=== PATIENT | female | born 1985 | race Caucasian/White ===

== ENCOUNTER 2016-08-03 18:52 | Emergency (ER) | payer MEDICAID ==
[~2016-08-03] VITALS: Ht 175.3 cm; Wt 72.6 kg
[~2016-08-03 18:52] MED LIST: ADDERRALL PO; CITA40TA22 PO
--- NOTE | 2016-08-03 18:58 | NUR ---
PT WALKED INTO ER C/O ANXIETY/PANIC ATTACK, STATES SHE HAS A HX OF PTSD, DENIES S/I, H/I, PT ALERT, ORIENTED X 4, NO RESP DISTRESS NOTED OR REPORTED UPON ASSESSMENT. MD AT BEDSIDE...
[2016-08-03] MEDS ORDERED: ALPRAZOLAM 0.25 MG TABLET PO ONE (20:00)
--- NOTE | 2016-08-03 20:07 | NUR ---
Patient discharged to home in stable conditon. Written and verbal after care instructions given. Patient verbalizes understanding of instructions. PT WALKED OUT UNASSISTED, STATES HER WILL BE PICKING HER UP...
[2016-08-03 20:09] VITALS: BP 126/89
[2016-08-03] MEDS ORDERED: ALPRAZOLAM 0.5 MG TABLET ONE (20:11)
== END 2016-08-03 20:10 | disposition home or self-care (01) ==
LOC: ER 18:56
DX: F41.9 Anxiety disorder, unspecified (principal); F32.9 Major depressive disorder, single episode, unspecified; F17.200 Nicotine dependence, unspecified, uncomplicated
CPT/HCPCS: A4663

== ENCOUNTER 2017-02-25 23:02 | Emergency (ER) | payer BC, OTHER ==
[~2017-02-25] VITALS: Ht 175.3 cm; Wt 76.2 kg
--- NOTE | 2017-02-25 23:51 | NUR ---
Patient discharged to home in stable conditon. Written and verbal after care instructions given. Patient verbalizes understanding of instructions.
== END 2017-02-25 23:51 | disposition home or self-care (01) ==
LOC: ER 23:10
DX: F41.9 Anxiety disorder, unspecified (principal); F32.9 Major depressive disorder, single episode, unspecified; F43.10 Post-traumatic stress disorder, unspecified; F17.200 Nicotine dependence, unspecified, uncomplicated
CPT/HCPCS: A4663

== ENCOUNTER 2017-03-02 22:36 | Inpatient (IN) | payer BC, OTHER ==
[~2017-03-02] VITALS: Ht 175.3 cm; Wt 81.6 kg
[2017-03-02 23:15] VITALS: BP 117/71
--- NOTE | 2017-03-02 23:15 | NUR ---
Pre-Admission Pre-admission assessment performed in the intake department of [facility]. Pt is A&O x4 and ambulatory with a steady gait. Her is present during the intake process. Vital signs are B/P 117/71, HR 113, RR 18, O2 sat 98%, T 98.0, and she reports mild pain related to fibromyalgia. Pt does not appear intoxicated and her speech is clear. She has racing thoughts and appears anxious. Pt is able to be redirected to answer questions. She reports that she has been using Xanax 4mg per day. Last given 1mg in the ED of another hospital earlier this evening. She denies h/o seizures. Pt is stable and admission is to continue [facility] the [facility].
[2017-03-02] MEDS ORDERED: ONDANSETRON 4 MG/2 ML VIAL IM PRN (23:30)
[2017-03-02] MEDS ORDERED: DICYCLOMINE HCL 20 MG TABLET PO PRN (23:30)
[2017-03-02] MEDS ORDERED: PRAZOSIN HCL 1 MG CAPSULE PO PRN (23:30)
[2017-03-02] MEDS ORDERED: LOPERAMIDE HCL 2 MG CAPSULE PO PRN ×2 (23:30)
[2017-03-02] MEDS ORDERED: ONDANSETRON ODT 4 MG TAB.RAPDIS SL PRN (23:30)
[2017-03-02] MEDS ORDERED: MIRALAX 17 GM POWD.PACK PO PRN (23:30)
[2017-03-02] MEDS ORDERED: MAG HYDROX/AL HYDROX/SIMETH 30 ML LIQUID UDC PO PRN (23:30)
[2017-03-02] MEDS ORDERED: LORAZEPAM 2 MG/1 ML VIAL IM PRN (23:30)
[2017-03-02] MEDS ORDERED: DIAZEPAM 10 MG TABLET PO PRN (23:30)
[2017-03-02] MEDS ORDERED: ACETAMINOPHEN 325 MG TABLET PO PRN (23:30)
[2017-03-02] MEDS ORDERED: DIAZEPAM 5 MG TABLET PO PRN (23:30)
[2017-03-03] VITALS (7 sets, daily range): BP systolic 100–125; BP diastolic 52–82
[2017-03-03] MEDS ORDERED: DIAZEPAM 10 MG TABLET PO SCH (00:30)
[2017-03-03 00:36] LABS: *AMPHETAMINE, URINE NEGATIVE (NEGATIVE); *BARBITURATE, URINE NEGATIVE (NEGATIVE); *CANNABINOID, URINE NEGATIVE (NEGATIVE); *COCCAINE, URINE NEGATIVE (NEGATIVE); *OPIATE, URINE NEGATIVE (NEGATIVE); *PHENCYCLIDINE SCREEN,URINE NEGATIVE (NEGATIVE)
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
[2017-03-03 01:02] LABS: *URINE HCG, QUAL NEGATIVE (NEGATIVE)
[2017-03-03] MEDS: diphenhydrAMINE 50 MG CAPSULE PO PRN ×2 (01:08→20:50)
--- NOTE | 2017-03-03 01:10 | NUR ---
PRN Benadryl and one time Valium Pt reports feeling anxious, restless, and as if she is going to panic. She also reports inability to sleep. HR 108 and CIWA 4. Provided calming reassurance. PRN Benadryl administered with one time Valium per MD orders.
[2017-03-03] MEDS ORDERED: diphenhydrAMINE 50 MG CAPSULE ONE (01:21)
[2017-03-03] MEDS ORDERED: DIAZEPAM 10 MG TABLET ONE (01:21)
[2017-03-03] MEDS ORDERED: BUPR150T5 PO (01:57)
--- NOTE | 2017-03-03 02:10 | NUR ---
PRN Benadryl and one time Valium reassessment PRN Benadryl and one time Valium effective. Pt is lying in bed resting with eyes closed. Respirations even and unlabored. Safety measures in place.
[2017-03-03 03:18] LABS: BASOPHILS % (AUTO) 0.4 % (0.0-2.0); EOSINOPHILS # (AUTO) 0.1 K/uL (0.0-0.7); EOSINOPHILS % (AUTO) 0.8 % (0.0-7.0); HEMATOCRIT 38.1 % (37-47); HEMOGLOBIN 12.9 G/DL (12.0-16.0); LYMPHOCYTES # (AUTO) 3.2 K/UL (0.8-4.8); LYMPHOCYTES % (AUTO) 34.2 % (20.5-51.5); MEAN CORPUSCULAR HEMOGLOBIN 30.2 UUG (27.0-31.0); MEAN CORPUSCULAR HGB CONC 34 g/dL (32.0-37.0); MONOCYTES # (AUTO) 0.9 K/UL (0.1-1.30); MONOCYTES % (AUTO) 9.1 % (0.0-11.0); NEUTROPHILS # (AUTO) 5.2 K/UL (1.8-8.9); NEUTROPHILS % (AUTO) 55.5 % (38.5-71.5); PLATELET COUNT (AUTO) 212 K/UL (150-450); RED BLOOD CELL COUNT(AUTO) 4.28 MIL/UL (4.2-5.4); WHITE BLOOD COUNT (AUTO) 9.4 K/UL (4.0-11.2)
[2017-03-03 03:28] LABS: ETHANOL < 3 MG/DL (0-0)
[2017-03-03 03:30] LABS: ALANINE AMINOTRANSFERASE 69 U/L (14-59); ALKALINE PHOSPHATASE 64 U/L (50-136); ASPARTATE AMINOTRANSFERASE 35 U/L (15-37); BILIRUBIN,TOTAL 0.3 mg/dL (0.2-1.0); CARBON DIOXIDE 28 mmol/L (21-32); CHLORIDE 106 mmol/L (98-107); CREATININE 0.8 mg/dL (0.6-1.3); GLUCOSE 98 mg/dL (74-106); MAGNESIUM 2.2 mg/dL (1.8-2.4); TOTAL PROTEIN, SERUM 6.8 g/dL (6.4-8.2); UREA NITROGEN, BLOOD 20 mg/dL (7-18)
--- NOTE | 2017-03-03 04:00 | NUR ---
0400 CIWA deferred CIWA ordered Q4HWA. Pt is lying in bed resting with eyes closed. Vital signs obtained. Safety measures in place.
--- NOTE | 2017-03-03 07:25 | NUR ---
END OF SHIFT Report provided to day shift nurse. Pt is in her room resting. She is a 31 yo female admitted to [facility] on 03/02 for BZD dependence. NKA, full code, regular diet. 5 day Valium to start today. Last CIWA was 4. One time Valium and Benadryl administered. She slept for 4 hours.
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
[2017-03-03] MEDS ORDERED: TUBERCULIN,PURIF.PROT.DERIV. 5 TU/0.1 ML TEST ID ONE (09:00)
[2017-03-03] MEDS: MULTIVITAMINS,THERAPEUTIC TABLET PO SCH (09:05)
[2017-03-03] MEDS: DIAZEPAM 10 MG TABLET PO SCH ×4 (09:05→20:50)
[2017-03-03] MEDS: buPROPion SR 150 MG TABLET.SA PO SCH (10:09)
[2017-03-03] MEDS: DIAZEPAM 10 MG TABLET PO PRN ×2 (10:28→22:58)
--- NOTE | 2017-03-03 10:28 | NUR ---
CRISIS TEAM CALLED Pt crying, stating she wants to cut herself, high anxiety state. Counselor speaking with patient. Crisis team called by insulation cupola charger. Meal tray with silverware removed from room. Dr. Angela to assess pt in a few minutes. DELVIS 11, given Valium 10 mg PRN. Will reassess in one hour. Pt placed on one to one monitoring. Will continue to monitor. Addendum: 03/03/17 at 1125 by DEQUAN PERALES RN Pt was also stating she wanted to . However, when asked, pt denies suicidal ideation or plan. Pt with multiple, superficial cuts/scratches on bilateral forearms and left anterior thigh, all scratches intact without redness or drainage.
--- NOTE | 2017-03-03 10:28 | NUR ---
PRN MEDICATION ADMINISTRATION Valium 10 mg po given for CIWA 11. Will reassess.
--- NOTE | 2017-03-03 11:28 | NUR ---
PRN MEDICATION REASSESSMENT Post assessment for Valium 10 mg PRN given at 1028 for CIWA 11. Pt sleeping, alert to verbal, CIWA 3.
--- NOTE | 2017-03-03 12:00 | NUR ---
notified of tachycardia HR 112-115. Dr. Angela notified. stating pt to received scheduled Valium dose and also her requested Baclofen PRN.
[2017-03-03] MEDS: BACLOFEN 20 MG TABLET PO PRN ×2 (13:17→20:51)
--- NOTE | 2017-03-03 13:17 | NUR ---
PRN MEDICATION ADMINISTRATION Pt reports neck pain, requesting muscle relaxant. Given Baclofen.
--- NOTE | 2017-03-03 14:17 | NUR ---
PRN MEDICATION REASSESSMENT Pt reports decrease in neck pain after dose of Baclofen.
[2017-03-03] MEDS: IBUPROFEN 600 MG TABLET PO PRN (17:34)
--- NOTE | 2017-03-03 17:34 | NUR ---
PRN MEDICATION ADMINISTRATION Pt report pain due to fibromyalgia. Given Tylenol PRN. Will reassess.
--- NOTE | 2017-03-03 18:34 | NUR ---
PRN MEDICATION REASSESSMENT Pt given Motrin for fibromyalgia pain. Pt now asleep.
--- NOTE | 2017-03-03 19:30 | NUR ---
END OF SHIFT NOTE 31 year old female admitted for medical detox from Xanax substance abuse disorder. History of fibromyalgia, UTI, left ankle fracture 2011, anxiety, depression, PTSD, Panic attacks. NKA. Full code. Regular diet. Fall and Seizure precautions. Placed on 5 day Valium taper. Pt with healed scratches, superficial cuts on bilateral forearms and left thigh scratches and bruising. 0800 CIWA 5. Howeverat 1023 pt with anxiety, CIWA 11, pt crying, stating she wants to , denies suicidal ideation, but wants to cut herself to decrease her anxiety. Counselor interviewed pt and crisis team also interviewed pt. Dr. Angela and Real notified. Pt placed on 1:1 for safety. Valium 10 mg po given at 1028, at 1128 CIWA 3. At 1247 CIWA 5 and at 1741 her CIWA is 2. At 1317 given Baclofen for neck pain and at 1734 given Motrin for fibromyalgia pain. Both medications effective for pain relief. Ate 100 percent of all meals and fluid intake 805 ml. Void x 4 and stool x 3. and fluid intake. Report given to night RN. Bed in low position and locked, side rails up x 2 and padded, call light within reach.
--- NOTE | 2017-03-03 19:55 | NUR ---
START OF SHIFT Received report from day shift nurse. Pt finished showering and is in her room with a 1:[address] for safety r/t to her verbalizing during the day that she wanted to cut herself. She is A&O x4 and ambulatory. NKA, full code status, and on a regular diet. PMH of fibromyalgia, UTI's, left ankle fracture, anxiety, depression, panic attacks, and PTSD. On admission she reported using Xanax 4mg per day. 5 day valium taper started today. Pt is observed to be restless with racing thoughts. Encouraged relaxation. Taper due tonight. Pt denies thoughts of harming herself or anyone else. Fall and seizure precautions in place. Bed is down with call light in reach.
[2017-03-03] MEDS: OXCARBAZEPINE 150 MG TABLET PO SCH (20:50)
--- NOTE | 2017-03-03 20:58 | NUR ---
PRN Tylenol and Benadryl Pt reports leg aches 7/10 and inability to sleep. PRN Tylenol and Benadryl administered.
--- NOTE | 2017-03-03 21:58 | NUR ---
PRN Tylenol and Benadryl reassessment PRN Tylenol somewhat effective. Pt's leg aches reduced to 4/10. She has not yet fallen asleep.
--- NOTE | 2017-03-03 23:00 | NUR ---
PRN Valium and Minipress Pt reports increased anxiety and inability to sleep. She states that whenever she falls asleep she has "flashbacks" of a traumatic event in her past. She states "I feel like I want to punch a wall". Pt denies SI/HI. HR 107. CIWA score 9. MD aware. PRN Valium and Minipress administered.
[2017-03-04] VITALS (7 sets, daily range): BP systolic 104–126; BP diastolic 65–80
--- NOTE | 2017-03-04 04:00 | NUR ---
0400 CIWA deferred CIWA ordered Q4HWA. Pt is lying in bed resting with eyes closed. Respirations even and unlabored. Safety measures in place.
--- NOTE | 2017-03-04 06:20 | NUR ---
PRN Valium Pt woke up anxious and reported that she had a nightmare. HR 110. CIWA score 5. Encouraged relaxation. PRN Valium administered.
--- NOTE | 2017-03-04 07:20 | NUR ---
PRN Valium reassessment PRN Valium effective. Pt is lying in bed resting with eyes closed. Respirations even and unlabored. Safety measures in place.
--- NOTE | 2017-03-04 07:27 | NUR ---
END OF SHIFT Report provided to day shift nurse. Pt is lying in bed resting with a 1:[address] for safety r/t thoughts of cutting herself yesterday. She is A&O x4 and ambulatory. NKA, full code status, and on a regular diet. PMH of fibromyalgia, UTI's, left ankle fracture, anxiety, depression, panic attacks, and PTSD. On admission she reported using Xanax 4mg per day. 5 day valium taper started 03/03. Pt did not have any SI throughout the shift. PRN Valium 10 mg, Valium 5mg, Tylenol, Benadryl, and Minipress administered. Last CIWA was 5. She drank 855mL and slept for 5 hours. Fall and seizure precautions in place. Bed is down with call light in reach.
--- NOTE | 2017-03-04 08:00 | NUR ---
START OF SHIFT NOTE 31 year old female admitted for medical detox from Xanax substance abuse disorder. History of fibromyalgia, UTI, left ankle fracture 2011, anxiety, depression, PTSD, Panic attacks. NKA. Full code. Regular diet. Fall and Seizure precautions. Received report from night RN. Pt received PRN valium x 2, last CIWA 5 at 0621. Also given PRN Tylenol, Bendryl, and prazosin. Slept 5 hours. 0800 nursing rounds pt asleep, respirations regular and unlabored. Bed in low position and locked, side rails up x 2 and padded, call guajardo within reach. Will continue to monitor.
[2017-03-04 08:06] LABS: HEPATITIS B SURFACE AG Negative (Negative)
[2017-03-04] MEDS: buPROPion SR 150 MG TABLET.SA PO SCH (09:38)
[2017-03-04] MEDS: DIAZEPAM 10 MG TABLET PO SCH ×3 (09:38→21:23)
[2017-03-04] MEDS: MULTIVITAMINS,THERAPEUTIC TABLET PO SCH (09:39)
[2017-03-04] MEDS: IBUPROFEN 600 MG TABLET PO PRN ×3 (09:46→21:23)
[2017-03-04] MEDS: OXCARBAZEPINE 150 MG TABLET PO SCH (09:46)
[2017-03-04] MEDS: CLONIDINE HCL 0.1 MG TABLET PO PRN (12:20)
[2017-03-04] MEDS: BACLOFEN 20 MG TABLET PO PRN (12:34)
--- NOTE | 2017-03-04 12:34 | NUR ---
PRN MEDICATION ADMINISTRATION Pt reported anxiety, neck muscle pain and headache. Given PRN Clonidine, Baclofen and Motrin. Will reassess.
--- NOTE | 2017-03-04 13:20 | NUR ---
PRN MEDICATION REASSESSMENT Post Clonidine,Baclofen and Motrin one hour prior. Pt reports decrease in anxiety, neck pain minimal, headache minimal.
--- NOTE | 2017-03-04 19:00 | NUR ---
END OF SHIFT NOTE 31 year old female admitted for medical detox from Xanax substance abuse disorder. History of fibromyalgia, UTI, left ankle fracture 2011, anxiety, depression, PTSD, Panic attacks. NKA. Full code. Regular diet. Fall and Seizure precautions. Received Clonidine, Baclofen and Motrin at 1234 for anxiety, muscle aches, headache. Symptoms relieved/decreased with PRN medication in one hour. Eating 75-100 percent of meals, fluid intake 2450 ml, void x 4, stool x 3. Report given to night RN. Bed in low position and locked, side rails up x 2 and padded, call guajardo within reach. Will continue to monitor.
--- NOTE | 2017-03-04 19:55 | NUR ---
START OF SHIFT Received report from day shift nurse. Pt attended a group meeting and returned to her room after. She is a 31 yo female admitted to [facility] on 03/02 for BZD dependence. She is A&O x4 and ambulatory. NKA, full code status, and on a regular diet. PMH of fibromyalgia, UTI's, left ankle fracture, anxiety, depression, panic attacks, and PTSD. On admission she reported using Xanax 4mg per day. 5 day valium taper started 03/03. Pt reports mild anxiety and neck ache. She denies SI/HI. Fall and seizure precautions in place. Bed is down with call light in reach.
[2017-03-04] MEDS: OXCARBAZEPINE 300 MG TABLET PO SCH (21:00)
[2017-03-04] MEDS: diphenhydrAMINE 50 MG CAPSULE PO PRN (21:23)
[2017-03-04] MEDS: PRAZOSIN HCL 1 MG CAPSULE PO PRN (21:23)
--- NOTE | 2017-03-04 21:25 | NUR ---
PRN Motrin, Benadryl, and Minipress Pt reports neck ache, inability to sleep, and night terrors. PRN Motrin, Benadryl, and Minipress administered.
--- NOTE | 2017-03-04 22:25 | NUR ---
PRN Motrin and Minipress PRN Motrin effective. Pt reports neck ache is relieved. She has not yet fallen asleep.
[2017-03-05] VITALS: BP 122/76
--- NOTE | 2017-03-05 04:00 | NUR ---
0400 Vitals refused/CIWA deferred Pt refused to be woken for 0400 vitals. Pt is lying in bed resting with eyes closed. Respirations even and unlabored. Safety measures in place.
--- NOTE | 2017-03-05 07:17 | NUR ---
END OF SHIFT Report provided to day shift nurse. Pt is lying in bed resting. She is a 31 yo female admitted to [facility] on 03/02 for BZD dependence. Pt has a 1:[address] for safety. She is A&O x4 and ambulatory. NKA, full code status, and on a regular diet. PMH of fibromyalgia, UTI's, left ankle fracture, anxiety, depression, panic attacks, and PTSD. On admission she reported using Xanax 4mg per day. 5 day valium taper started 03/03. No SI/HI during the shift. PRN Motrin and Minipress administered. Last CIWA 4. She drank 1000mL and slept for 5 hours. Fall and seizure precautions in place. Bed is down with call light in reach. Addendum: 03/05/17 at 0724 by XOCHITL FALLON RN Pt refused her 2100 Trileptal. She explained "anticonvulsants can make me feel upset and cry"
[2017-03-05 08:00] VITALS: BP 118/78
--- NOTE | 2017-03-05 08:00 | NUR ---
START OF SHIFT NOTE 31 year old female admitted for medical detox from Xanax substance abuse disorder. History of fibromyalgia, UTI, left ankle fracture 2011, anxiety, depression, PTSD, Panic attacks. NKA. Full code. Regular diet. Fall and Seizure precautions. Received report from night RN. Pt received PRN Motrin and Minipress. Slept 5 hours. Last CIWA 4 at 1200 am. 0800 nursing rounds pt alert and oriented, no requests at this time. Bed in low position and locked, side rails up x 2 and padded, call guajardo within reach. Will continue to monitor.
[2017-03-05] MEDS: buPROPion SR 150 MG TABLET.SA PO SCH (09:17)
[2017-03-05] MEDS: DIAZEPAM 5 MG TABLET PO SCH ×3 (09:17→16:49)
[2017-03-05] MEDS: OXCARBAZEPINE 300 MG TABLET PO SCH ×2 (09:17→21:11)
[2017-03-05] MEDS: MULTIVITAMINS,THERAPEUTIC TABLET PO SCH (09:17)
[2017-03-05 12:00] VITALS: BP 110/87
[2017-03-05] MEDS: BACLOFEN 20 MG TABLET PO PRN (13:10)
[2017-03-05] MEDS: IBUPROFEN 600 MG TABLET PO PRN ×3 (13:10→21:11)
--- NOTE | 2017-03-05 13:10 | NUR ---
PRN MEDICATION ADMINISTRATION Pt reports neck ache, bilateral leg neuropathic pain. Given Motrin and Baclofen. Will reassess.
--- NOTE | 2017-03-05 13:45 | NUR ---
Activity Group Note: Client participated in "Sequence" activity. Intervention goal was to increase task focus and leisure skills. Client's mood appeared to be euthymic with congruent affect. Client had a coherent and goal-directed thought process as she was able to understand and complete the task. She initiated conversation with her peers and medical social worker. She stated that "This [the activity] is good for me and my brain." Client benefits from leisure activities and social interaction with peers. handy worker will continue to encourage participation in activity group.
--- NOTE | 2017-03-05 14:10 | NUR ---
PRN MEDICATION REASSESSMENT Post Motrin and Baclofen administration. Pt reports improvement in symptoms/decrease in pain in neck and legs.
[2017-03-05] MEDS: CLONIDINE HCL 0.1 MG TABLET PO PRN (16:52)
--- NOTE | 2017-03-05 16:52 | NUR ---
PRN MEDICATION ADMINISTRATION Pt reporting anxiety. Given Clonidine PRN. Will reassess.
[2017-03-05 17:00] VITALS: BP 132/85
--- NOTE | 2017-03-05 17:52 | NUR ---
PRN MEDICATION REASSESSMENT Pt given Clonidine PRN for anxiety at 1652. At 1752, pt reports decrease in anxiety.
--- NOTE | 2017-03-05 19:00 | NUR ---
END OF SHIFT NOTE 31 year old female admitted for medical detox from Xanax substance abuse disorder. History of fibromyalgia, UTI, left ankle fracture 2011, anxiety, depression, PTSD, Panic attacks. NKA. Full code. Regular diet. Fall and Seizure precautions. Tolerating Valium taper as evidenced by CIWA score of 4 at 0800, 1200 and 1700. At 1310, Pt reporting neck muscle aches and bilateral leg neuropathy pain. Given Baclofen and Motrin. AT 1410, P t reports decrease in neck and leg pain. At 1652, Pt reported anxiety. Given Clonidine PRN. At 1752, Pt report decrease in anxiety. Consuming 75-100 percent of meals. Fluid intake 1500 ml. Void x 3, stool x 2. Report given to night RN. Bed in low position and locked, side rails up x 2 and padded, call guajardo within reach.
--- NOTE | 2017-03-05 19:15 | NUR ---
START OF SHIFT Received 31 year old female patient admitted on 03/02/17 for Xanax dependency. Pt is full code with NKA. She reports a PMHx of fibromyalgia, hx of UTI's, left ankle fracture in 2011, anxiety, depression, PTSD, panic attacks. She reports using Xanax 4 mg daily for 20 days. Last dose was 1 mg on 03/02/17. Pt is currently on a 5 day Valium taper and is tolerating well. Per endorsement, she received PRN Clonidine. She is alert and oriented x4, breathing is even and unlabored. Safety measures in place. Will continue to monitor.
[2017-03-05 20:00] VITALS: BP 130/79
[2017-03-05] MEDS ORDERED: DIAZEPAM 10 MG TABLET PO SCH (21:00)
[2017-03-05] MEDS: diphenhydrAMINE 50 MG CAPSULE PO PRN (21:10)
[2017-03-05] MEDS: PRAZOSIN HCL 1 MG CAPSULE PO PRN (21:10)
--- NOTE | 2017-03-05 21:10 | NUR ---
PRN MOTRIN, BENADRYL, MINIPRESS Pt complains of pain related to fibromyalgia 5/10, inability to sleep and night terrors. PRN Motrin, Benadryl and Minipress administered as ordered. Breathing even and unlabored. Safety measures in place. Will monitor effectiveness.
--- NOTE | 2017-03-05 22:10 | NUR ---
PRN REASSESSMENT PRN Motrin effective. Pt reports decrease in pain. PRN Benadryl and Minipress ineffective after 1 hour of administration. Pt appears drowsy and reports she is ready to sleep. Will monitor.
--- NOTE | 2017-03-06 | NUR ---
VITALS REFUSED, CIWA DEFERRED 0000 vitals refused by pt. Pt stated " I want to sleep, it's been hard for me to fall asleep." CIWA deferred d/t pt lying in bed with eyes closed noted to be asleep. Respirations 16, breathing is even and unlabored. Safety measures in place. Will monitor.
--- NOTE | 2017-03-06 04:00 | NUR ---
VITALS REFUSED, CIWA DEFERRED 0400 vitals refused by pt. CIWA deferred d/t pt lying in bed with eyes closed noted to be asleep. Respirations 16, breathing is even and unlabored. Safety measures in place. Will monitor.
--- NOTE | 2017-03-06 07:05 | NUR ---
END OF SHIFT Pt is a 31 year old female patient admitted on 03/02/17 for Xanax dependency. Pt is full code with NKA. She reports a PMHx of fibromyalgia, hx of UTI's, left ankle fracture in 2011, anxiety, depression, PTSD, panic attacks. Pt continues on a 5 day Valium taper which was modified by . She is tolerating well. At 2109 she received PRN Motrin, Benadryl, and Minipress. She slept a total of 6hrs, Intake: 796mL, Void: x1, BM:x1, CIWA:4. She remains alert and oriented x4, breathing is even and unlabored. Safety measures in place. Will endorse.
--- NOTE | 2017-03-06 07:10 | NUR ---
Start of shift note SBAR report rcv'd. Pt was admitted for benzo dependence. Pt has a PMHx of fibromylagia, UTI's, anxiety, depression, PTSD, and panic attacks. Pt is on a modified valium taper. Pt is a full code, on a regular diet and denies any allergies. Pt states that she would like some bengay for her legs, will notify Dr Angela during rounds, pt has no further complaints at this time. Will continue to monitor pt. All needs addressed at this time.
[2017-03-06 08:00] VITALS: BP 121/73
[2017-03-06] MEDS: MULTIVITAMINS,THERAPEUTIC TABLET PO SCH (08:59)
[2017-03-06] MEDS: OXCARBAZEPINE 300 MG TABLET PO SCH ×2 (08:59→22:10)
[2017-03-06] MEDS ORDERED: DIAZEPAM 5 MG TABLET PO SCH ×2 (09:00→15:00)
[2017-03-06] MEDS: buPROPion SR 150 MG TABLET.SA PO SCH (09:35)
[2017-03-06 12:00] VITALS: BP 113/83
--- NOTE | 2017-03-06 12:00 | NUR ---
CIWA deferred Pt is sleeping, CIWA deferred. Will continue to monitor pt.
--- NOTE | 2017-03-06 13:45 | NUR ---
Activity Group Note: Client participated in "painting" activity. Intervention goal was to increase task focus and leisure skills. Client's mood appeared to be euthymic with congruent affect. She had a coherent and goal-directed thought process as she was able to complete the task. She was able to initiate conversation with peers. Client stated the activity was "a good coping mechanism for me." Client benefits from leisure activities and social interaction with peers. soda worker will continue to encourage participation.
[2017-03-06] MEDS: IBUPROFEN 600 MG TABLET PO PRN ×2 (14:12→22:10)
--- NOTE | 2017-03-06 14:12 | NUR ---
PRN administration Pt c/o leg pain 11/20 d/t fibromylagia. Requested motrin, administered per MD order. Will continue to monitor pt.
--- NOTE | 2017-03-06 15:12 | NUR ---
Reassessment Pt states that the medication was effective in reducing her pain for 08/21. Will continue to monitor pt.
[2017-03-06 16:00] VITALS: BP 117/87
--- NOTE | 2017-03-06 18:57 | NUR ---
End of shift note Pt was admitted for benzo dependence. Pt is a full code, on a regular diet and denies any allergies. Pt has a PMHx of fibromylagia, UTI's, anxiety, depression, PTSD, and panic attacks. Pt is on a modified valium taper, which was modified further during the shift d/t pt discomfort during the withdrawal process addressed at this time. Pt has PRN bengay available per Dr Angela for her leg pain, pt stated that she would like to use it prior to bed. Pt required one PRN dose of motrin during the shift for her leg pain with effectiveness. PO fluids encouraged. Pt drank 1500ml of fluids, have 2 voids and 1 BM during the shift and ate 100% of meals. Pt has no further complaints at this time. Pt had a CIWA of 4 at 1600. Will continue to monitor pt.
--- NOTE | 2017-03-06 19:15 | NUR ---
START OF SHIFT Received 31 year old female patient admitted on 03/02/17 for Xanax dependency. Pt is full code with NKA. She reports a PMHx of fibromyalgia, hx of UTI's, left ankle fracture in 2011, anxiety, depression, PTSD, panic attacks. She reports using Xanax 4 mg daily for 20 days. Last dose was 1 mg on 03/02/17. Pt is currently on a 5 day Valium taper and is tolerating well. Per endorsement, taper was modified today. She received PRN Motrin. Pt is alert and oriented x4, breathing is even and unlabored. Safety measures in place. Will continue to monitor.
[2017-03-06 20:00] VITALS: BP 128/87
[2017-03-06] MEDS ORDERED: DIAZEPAM 10 MG TABLET PO SCH (21:00)
[2017-03-06] MEDS: PRAZOSIN HCL 1 MG CAPSULE PO SCH (22:08)
[2017-03-06] MEDS: diphenhydrAMINE 50 MG CAPSULE PO PRN (22:10)
[2017-03-06] MEDS: CLONIDINE HCL 0.1 MG TABLET PO SCH (22:10)
--- NOTE | 2017-03-06 22:10 | NUR ---
PRN MOTRIN/SHAREE DENISE/BENADRYL Pt complains of pain on lower legs and insomnia. PRN Motrin, Sharee Denise cream and Benadryl administered as ordered. Breathing even and unlabored. Pt refuses side rails to be up. Will continue to monitor.
[2017-03-06] MEDS: METHYL SALICYLATE/MENTHOL CREAM 28 GM TUBE TOP PRN (22:12)
--- NOTE | 2017-03-06 23:10 | NUR ---
PRN REASSESSMENT PRN Motrin and Bengay effective in relieving pt's pain on lower legs. PRN Benadryl ineffective. Pt appears drowsy, reports she is ready to sleep. Will continue to monitor.
[2017-03-07 00:03] VITALS: BP 118/82
[2017-03-07] MEDS: IBUPROFEN 600 MG TABLET PO PRN ×3 (06:34→15:12)
--- NOTE | 2017-03-07 06:34 | NUR ---
PRN MOTRIN Pt complains of headache 11/20. PRN Motrin administered as ordered. Breathing is even and unlabored. Safety measures in place. Will endorse to AM shift to monitor effectiveness.
--- NOTE | 2017-03-07 07:05 | NUR ---
END OF SHIFT Pt is 31 year old female patient admitted on 03/02/17 for Xanax dependency. Pt is full code with NKA. She reports a PMHx of fibromyalgia, hx of UTI's, left ankle fracture in 2011, anxiety, depression, PTSD, panic attacks. She reports using Xanax 4 mg daily for 20 days. Last dose was 1 mg on 03/02/17. She continues on a Valium taper that has been modified by . At 2210 she recevied PRN Motrin and Benadryl. She slept a total of 5 hrs, Intake:1105mL, Void: x3, BM:0, CIWA:4. Pt remains alert and oriented x4, breathing is even and unlabored. Safety measures in place. Will endorse to oncoming shift.
--- NOTE | 2017-03-07 07:34 | NUR ---
BEGINNING OF SHIFT Patient endorsement report received from night warehouse manager nurse, all pertinent information discussed. patient is a 31 year old female admitted on: 03/02/2017 with admitting Dx: bzo dependence. Patient Fall and seizure precautions observed and in place. Per night warehouse manager patient patient slept for 5 hours. Patient received PRN: Motrin and Benadryl, as ordered, per night warehouse manager medications effective. safety measures in place. call light kept with in reach. patient with last ciwa score of: 4. safety measures in place. will continue to monitor closely.
[2017-03-07 08:44] VITALS: BP 110/73
[2017-03-07] MEDS: buPROPion SR 150 MG TABLET.SA PO SCH (08:54)
[2017-03-07] MEDS: DIAZEPAM 5 MG TABLET PO SCH ×2 (08:54→20:29)
[2017-03-07] MEDS: MULTIVITAMINS,THERAPEUTIC TABLET PO SCH (08:54)
[2017-03-07] MEDS: OXCARBAZEPINE 300 MG TABLET PO SCH ×2 (08:54→20:29)
[2017-03-07] MEDS: CLONIDINE HCL 0.1 MG TABLET PO SCH ×2 (08:55→20:30)
--- NOTE | 2017-03-07 08:57 | NUR ---
PRN MOTRIN Patient c/o body aches 10/21 provided with non pharmacological interventions with no relief, administered Motrin as ordered, will monitor effectiveness.
--- NOTE | 2017-03-07 09:57 | NUR ---
MOTRIN REASSESSMENT Patient reports medication effective, current pain level 0/10, will continue to monitor.
--- NOTE | 2017-03-07 13:45 | NUR ---
Activity Group Note: Client participated in "Sequence" activity. Intervention goal was to increase task focus and leisure skills. Client's mood appeared to be euthymic with appropriate affect. She had a coherent and goal-directed thought process, as evidenced by her ability to understand, complete, and teach the task to her peers. She initiated and upheld conversation with peers and social welfare research worker. Client stated, "I have loved hanging out with everyone these past few days...I just like to get out of my room." Client benefits from social interaction with peers and leisure activities. alley worker will continue to encourage participation.
[2017-03-07 13:46] VITALS: BP 128/79
[2017-03-07] MEDS ORDERED: PNEUMOCOCCAL 23-VAL P-SAC VAC 0.5 ML VIAL IM ONE (15:00)
[2017-03-07] MEDS ORDERED: INFLUENZA VACCINE 2017-2018 0.5 ML DISP.SYRIN IM ONE (15:00)
[2017-03-07 15:11] VITALS: BP 141/92
--- NOTE | 2017-03-07 15:12 | NUR ---
PRN MOTRIN Patient c/o body aches 10/21 provided with non pharmacological interventions with no relief, administered Motrin as ordered, will monitor effectiveness.
[2017-03-07] MEDS: CLONIDINE HCL 0.1 MG TABLET PO PRN (15:13)
--- NOTE | 2017-03-07 15:13 | NUR ---
PRN CLONIDINE patient with bp: 141/92 heart rate of: 103, administered clonidine as ordered, will monitor effectiveness.
--- NOTE | 2017-03-07 15:25 | NUR ---
PNA/FLU VACCINE ADMINISTRATION Patient consented for flu and PNA vaccine, administered injections as ordered, pneumococcal vaccine to left deltoid and flu vaccine to right deltoid. Injections well tolerated. will continue to monitor.
--- NOTE | 2017-03-07 16:12 | NUR ---
MOTRIN REASSESSMENT Patient reports medication effective, current pain level 0/10, will continue to monitor.
--- NOTE | 2017-03-07 16:13 | NUR ---
CLONIDINE REASSESSMENT Medication effective, bp decreased to: 119/76 heart rate: 69 will continue to monitor.
[2017-03-07 17:24] VITALS: BP 119/76
--- NOTE | 2017-03-07 19:05 | NUR ---
END OF SHIFT Patient alert and oriented x4, admitting Dx: BZO dependence. compliant with therapeutic plan of care. patients vital signs were stable during shift. patient currently with ongoing modified Valium taper as ordered, well tolerated, no ASE noted. patient encouraged adequate PO fluid intake as tolerated. 0900 assessment patient presented with: fine tremors, barely sweating, moderate anxiety, and mild agitation with ciwa score of: 9; 1300 assessment patient presented with: fine tremors, moderate anxiety and mild agitation with ciwa score of: 8; 1700 assessment patient presented with: fine tremors moderate anxiety and mild agitation with ciwa score of: 8. Patient received PRN: Motrin x2 during shift and clonidine as ordered, medications effective one hour post administration. detox medication effective at reducing withdrawal symptoms.during shift patient encouraged to attend group therapies/sessions to learn new coping skills to prevent relapse, patient denies any SI/HI. During shift patient received Flu vaccine and PNA vaccine as ordered, well tolerated. Safety measures in place. will continue to monitor, endorsement report given to overnight cashier nurse, all pertinent information discussed.
--- NOTE | 2017-03-07 19:15 | NUR ---
START OF SHIFT Received 31 year old female patient admitted on 03/02/17 for Xanax dependency. Pt is full code with NKA. She reports a PMHx of fibromyalgia, hx of UTI's, left ankle fracture in 2011, anxiety, depression, PTSD, panic attacks. She reports using Xanax 4 mg daily for 20 days. Last dose was 1 mg on 03/02/17. Pt is currently on a modified Valium taper and is tolerating well. Per endorsement, she received her flu and PNA vaccine and received a PRN Motrin and clonidine. Pt is alert and oriented x4, breathing is even and unlabored. Safety measures in place. Will continue to monitor.
[2017-03-07 20:00] VITALS: BP 124/76
[2017-03-07] MEDS ORDERED: NICOTINE 14 MG/24HR PATCH TD PRN (20:00)
[2017-03-07] MEDS ORDERED: NICOTINE POLACRILEX 4 MG GUM-PK OF TEN BC PRN (20:00)
[2017-03-07] MEDS: BACLOFEN 20 MG TABLET PO PRN (20:29)
[2017-03-07] MEDS: PRAZOSIN HCL 1 MG CAPSULE PO SCH (20:29)
--- NOTE | 2017-03-07 20:29 | NUR ---
PRN BACLOFEN/BENGAY CREAM Pt complains of muscle spasms/pain. PRN Baclofen and Bengay cream administered as ordered. Pt reports Bengay is effective in relieving her pain. Will monitor.
[2017-03-07] MEDS: METHYL SALICYLATE/MENTHOL CREAM 28 GM TUBE TOP PRN (20:31)
--- NOTE | 2017-03-07 21:29 | NUR ---
PRN REASSESSMENT PRN Baclofen effective. Pt reports decrease in muscle spasms/pain. Will continue to monitor
[2017-03-07] MEDS: diphenhydrAMINE 50 MG CAPSULE PO PRN (23:54)
--- NOTE | 2017-03-07 23:54 | NUR ---
PRN BENADRYL Pt complains of insomnia. PRN Benadryl administered as ordered. Breathing even and unlabored. Will monitor effectiveness.
[2017-03-08] VITALS: BP 117/73
--- NOTE | 2017-03-08 00:54 | NUR ---
PRN REASSESSMENT PRN medication is effective. Pt lying in bed with eyes closed noted to be asleep. Respirations 16, breathing is even and unlabored. Safety measures in place. Will monitor.
[2017-03-08 04:35] VITALS: BP 128/85
--- NOTE | 2017-03-08 07:22 | NUR ---
END OF SHIFT Pt is a 31 year old female patient admitted on 03/02/17 for Xanax dependency. Pt is full code with NKA. She reports a PMHx of fibromyalgia, hx of UTI's, left ankle fracture in 2011, anxiety, depression, PTSD, panic attacks. She continues on a modified Valium taper and is tolerating well. At 2028 she received PRN Baclofen, and at 2353 she received PRN Benadryl. She slept a total of 4 hrs, Intake: 855mL, Void: x2, BM:0, CIWA: 7. Pt remains alert and oriented x4, breathing is even and unlabored. Safety measures in place. Will endorse to oncoming shift.
[2017-03-08 08:00] VITALS: BP 91/53
--- NOTE | 2017-03-08 08:00 | NUR ---
START OF SHIFT NOTE 31 year old female admitted for medical detox from Xanax substance abuse disorder. History of fibromyalgia, UTI, left ankle fracture 2011, anxiety, depression, PTSD, Panic attacks. NKA. Full code. Regular diet. Fall and Seizure precautions. Received report from night RN. Slept 4 hours, given Baclofen PRN at 2028. CIWA 7 at 0435. HR 110. Please note, HR has been 110-118 since admission and MD aware. Clonidine ordered TID. 0800 nursing rounds, Pt alert and orient x 4. Side rails up x 2 and padded, bed in low position and locked. Call light within reach. Will continue to monitor.
[2017-03-08] MEDS ORDERED: DIAZEPAM 5 MG TABLET PO SCH (09:00)
[2017-03-08] MEDS: buPROPion SR 150 MG TABLET.SA PO SCH (09:57)
[2017-03-08] MEDS: OXCARBAZEPINE 300 MG TABLET PO SCH ×2 (09:58→20:45)
[2017-03-08] MEDS: CLONIDINE HCL 0.1 MG TABLET PO SCH ×3 (09:58→20:44)
[2017-03-08] MEDS: MULTIVITAMINS,THERAPEUTIC TABLET PO SCH (09:58)
[2017-03-08] MEDS: IBUPROFEN 600 MG TABLET PO PRN ×2 (10:12→20:45)
--- NOTE | 2017-03-08 10:12 | NUR ---
PRN MEDICATION ADMINISTRATION Pt reporting back pain and muscle ache. Given PRN Motrin and Asael French cream. Will reassess.
[2017-03-08] MEDS: METHYL SALICYLATE/MENTHOL CREAM 28 GM TUBE TOP PRN (10:13)
--- NOTE | 2017-03-08 11:12 | NUR ---
PRN MEDICATION REASSESSMENT Pt given PRN Motrin and Asael French cream at 1012 for reported back ache and muscle ache. At 1112 Pt reports relief of back ache and muscle ache.
[2017-03-08 12:00] VITALS: BP 123/77
[2017-03-08] MEDS: CLONIDINE HCL 0.1 MG TABLET PO ONE (13:59)
[2017-03-08 17:00] VITALS: BP 122/79
[2017-03-08] MEDS ORDERED: OXCA300T4 PO (18:02)
[2017-03-08] MEDS ORDERED: NICO1PAT25 TD (18:02)
[2017-03-08] MEDS ORDERED: DIPH50CA37 PO (18:02)
[2017-03-08] MEDS ORDERED: BACL20TA PO (18:02)
[2017-03-08] MEDS ORDERED: HYDR25CA PO (18:02)
[2017-03-08] MEDS ORDERED: PRAZ1CAP2 PO (18:02)
[2017-03-08] MEDS ORDERED: IBUP-1955 PO (18:02)
[2017-03-08] MEDS ORDERED: CLON0.1T14 PO (18:02)
--- NOTE | 2017-03-08 19:01 | NUR ---
END OF SHIFT NOTE 31 year old female admitted for medical detox from Xanax substance abuse disorder. History of fibromyalgia, UTI, left ankle fracture 2011, anxiety, depression, PTSD, Panic attacks. NKA. Full code. Regular diet. Fall and Seizure precautions. At 1012, Pt reporting back ache and muscle ache. Given PRN Motrin and Asael French cream. At 1112, Pt reporting decrease in back ache and muscle ache. Pt tolerating modified Valium taper as evidenced by CIWA 3 at 0800. At 1200, CIWA 4. At 1700, CIWA 3. Pt consuming 75-100 percent of meals. Fluid intake 1651 ml. Void x 5. Stool x 1. Report given to night RN. Side rails up x 2 and padded, bed in low position and locked. Call light within reach.
[2017-03-08 20:00] VITALS: BP 119/70
--- NOTE | 2017-03-08 20:00 | NUR ---
1999 Patient received awake, alert and lying in her bed watching television and writing on paper. Patient responds to nurse's greeting and introduction with, " Hi, are you my nurse tonight?" Patient is oriented to person, place, day, date and her personal situation. Easily reoriented to time. Patient's color is pink and her skin is clean, warm, dry and intact. Patient states that she has "not had the best day today for some reason." Patient states that she feels anxious " a lot today", but she has been eating her regular diet meal trays and taking various fluids "pretty good" with no gastric issues noted. Patient states that she has gone to [facility] groups, though she did not attend PM group tonight. Vital signs are: 98.3-86-18 119/70 O2 Sat 98%, CIWA 4 . Patient c/o vague body discomfort, though she denies the need for any Prn medication at this time. Patient was admitted on 03/02/17 for Xanax withdrawal and she has been on PRN medications only for withdrawal symptoms. Patient is scheduled for discharge tomorrow. Patient is cooperative and verbally appropriate when interacting with nurse and she voices no requests for anything at this time. Bed is locked and in lowest position, bed rails are up X 1 and call light within patient's easy reach.
[2017-03-08] MEDS: PRAZOSIN HCL 1 MG CAPSULE PO SCH (20:45)
[2017-03-08] MEDS: BACLOFEN 20 MG TABLET PO PRN (20:45)
--- NOTE | 2017-03-08 20:45 | NUR ---
PRN MEDICATIONS: Prn Baclofen 20 mg p.o. given per request for c/o " bad muscle spasms" and prn Motrin 600 mg p.o. given per request for c/o generalized body discomfort, 6-7/10 pain scale.
--- NOTE | 2017-03-08 21:45 | NUR ---
REASSESSMENT PRN MEDICATIONS: Patient is downstairs on hospital patio for smoke break. Unable to reassess patient at this time.
--- NOTE | 2017-03-09 | NUR ---
Patient refused to be awakened for V/S, CIWA to be done at this time.
--- NOTE | 2017-03-09 04:00 | NUR ---
Patient refused to be awakened for V/S, CIWA to be done at this time.
--- NOTE | 2017-03-09 06:48 | NUR ---
0630 Patient slept a total of 5 hours and she had 3 voids and 2 stools. Total intake was 1,605 ml p.o. Prn medications given noted separately per floor protocol. V/SS, afebrile, last CIWA 4 at 1999. Patient is presently resting comfortably in stable condition with eyes closed and respirations even, unlabored at 12.
[2017-03-09 08:00] VITALS: BP 118/71
--- NOTE | 2017-03-09 08:00 | NUR ---
START OF SHIFT NOTE 31 year old female admitted for medical detox from Xanax substance abuse disorder. History of fibromyalgia, UTI, left ankle fracture 2011, anxiety, depression, PTSD, Panic attacks. NKA. Full code. Regular diet. Fall and Seizure precautions. Received report from night RN. Slept 5 hours, given Baclofen and Motrin PRN at 2044. Medication was effective for pain and muscle ache. CIWA 4 at 8pm. 0800 nursing rounds, Pt alert and orient x 4. Side rails up x 2 and padded, bed in low position and locked. Call light within reach. Will continue to monitor.
[2017-03-09] MEDS: IBUPROFEN 600 MG TABLET PO PRN (09:01)
--- NOTE | 2017-03-09 09:02 | NUR ---
PRN MEDICATION ADMINISTRATION Pt reporting back ache and nausea. Give Motrin and Zofran SL. Will reassess.
--- NOTE | 2017-03-09 09:42 | NUR ---
DISCHARGE NOTE Pt is in stable condition. Vitals WNL, Pt alert and oriented x4, skin intact, Pt denies any SI/HI. All discharge paperwork completed dated and signed. Pt educated about discharge instructions, what to do after discharge when to contact MD as well as the s/s reportable to MD, pt verbalized understanding. Pt was provided with all of his discharge paperwork. Pt's last CIWA:2 taken at 0800. Pt was discharged from [facility] on 03/09/17 at 0942. Pt left the building with all of his belongings, prescriptions and medications. MD and psychiatrist have been contacted notified and aware of pt's d/c.
--- NOTE | 2017-03-09 09:42 | NUR ---
PRN MEDICATION REASSESSMENT Pt discharged at 941, Pt reported at 09 that nausea resolved and back pain improved.
== END 2017-03-09 09:42 | disposition other institution (70) | DRG 895 ==
LOC: SRC 22:36
PROVIDERS: ADMIT Internal Medicine; ATTEND Internal Medicine
DX: F13.232 Sedative, hypnotic or anxiolytic dependence with withdrawal with perceptual disturbance (principal); R45.851 Suicidal ideations; I15.9 Secondary hypertension, unspecified; F43.12 Post-traumatic stress disorder, chronic; E86.0 Dehydration; G47.50 Parasomnia, unspecified; F17.210 Nicotine dependence, cigarettes, uncomplicated; G47.00 Insomnia, unspecified; F32.9 Major depressive disorder, single episode, unspecified; M79.7 Fibromyalgia; Z86.69 Personal history of other diseases of the nervous system and sense organs; Z81.1 Family history of alcohol abuse and dependence; Z81.8 Family history of other mental and behavioral disorders; Z91.5 Personal history of self-harm; T74.21XS Adult sexual abuse, confirmed, sequela; Z79.899 Other long term (current) drug therapy
CPT/HCPCS: 36415; 70030-TC; 80307; 80346; 83735; 84703; 85025; 86580; 86592; 86705; 86803; 87340; 87806; 90686; 90732; G0480; Q0162; Q0163